=== PATIENT | male | born 1990 | race Caucasian/White ===

== ENCOUNTER 2019-02-20 08:17 | Emergency (ER) | payer BC, OTHER ==
[~2019-02-20] VITALS: Ht 193 cm; Wt 105.2 kg
[2019-02-20 08:22] VITALS: BP 146/52
[2019-02-20] MEDS ORDERED: METO25TA35 PO (08:40)
[2019-02-20] MEDS ORDERED: ASPI-650 PO (08:40)
[2019-02-20] MEDS ORDERED: chantix (08:41)
[2019-02-20] MEDS ORDERED: DEXAMETHASONE 4 MG/ML, 5ML ONE (08:43)
--- NOTE | 2019-02-20 08:58 | NUR ---
Report from Kim KOCH. Pt resting in bed NAD.
[2019-02-20] MEDS ORDERED: DEXAMETHASONE 4 MG/ML, 1ML PO ONE (09:00)
--- NOTE | 2019-02-20 09:51 | NUR ---
Patient/Caregiver given discharge instructions and they have confirmed that they understand the instructions. Patient ambulatory with steady gait.
== END 2019-02-20 09:52 | disposition home or self-care (01) ==
LOC: ED 09:48
DX: J02.8 Acute pharyngitis due to other specified organisms (principal); J01.00 Acute maxillary sinusitis, unspecified; I48.91 Unspecified atrial fibrillation
CPT/HCPCS: 87081; 87880; 99283; J1100